=== PATIENT | male | born 1995 | race Caucasian/White ===

== ENCOUNTER → 2021-04-28 10:49 | Outpatient (CLI) | payer OTHER, SELFPAY ==
--- NOTE | 2021-04-28 10:57 | DI.MRI.S_ITS ---
PROCEDURE: MR HIP LT W CON INDICATIONS: Pain in left hip TECHNIQUE: After the administration of 10 mL of dilute intra-articular Gadolinium contrast, coronal STIR of the bony pelvis; coronal and oblique axial T1 spin echo with fat saturation, axial T2 fast spin echo with fat saturation, sagittal T1 spin echo with and without fat saturation of the involved hip. COMPARISON: None. FINDINGS: BONES AND JOINTS: Osseous structures: No fracture identified. Sacroiliac joints: Unremarkable in signal intensity. Lower lumbar spine: Diffuse spondylosis and facet arthropathy. Joint effusion: None. Other: No evidence of osteonecrosis. TENDONS AND LIGAMENTS: Gluteus medius and minimus tendons: Thickening and abnormal signal involving the gluteus minimus insertion suggestive of subacute or chronic tear and background tendinopathy. This appears asymmetric to the contralateral side. No definite associated muscle atrophy. Proximal iliotibial band: Intact. Iliopsoas tendon: Intact. Origin of the hamstring tendon: Intact. Rectus femoris muscle origins: Intact Ligamentum teres: Intact where visualized. LABRUM: Labrum: Slightly blunted appearance of the anterosuperior labrum. Of note, there is minimal adjacent chondral loss or degenerative sclerosis . Alpha angle of the femur: Within normal limits at less than 55 degrees. SOFT TISSUES: Visualized muscles: Normal bulk and internal signal. Quadratus femoris muscle: Normal. Proximal sciatic neurovascular bundle: Normal adjacent to the hamstring tendons. Other: No pelvic free fluid. Bladder: Normal. Genitourinary structures and bowel loops: Normal where visualized. 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 Mild irregularity of the anterosuperior labrum which could reflect incidental sublabral sulcus (favored over tear) or mild degeneration. Of note, minimal degenerative changes in the adjacent acetabulum, or chondral loss. Therefore please correlate clinically Dictated by: Simba Bernard M.D. on 04/28/2021 at 13:39 Approved by: Simba Bernard M.D. on 04/28/2021 at 13:56
--- NOTE | 2021-04-28 10:58 | DI.RAD.S_ITS ---
PROCEDURE: FL HIP INJECTION MR/CT LT INDICATIONS: Pain in left hip TECHNIQUE: The indications, alternatives, benefits, risks, and complications of the procedure were explained to the patient. Written informed consent was obtained and placed in the chart. The hip was examined fluoroscopically with the legs fixed in slight internal rotation, and a site for needle placement chosen for entry into the hip joint from an anterior approach. Care was taken to locate the common femoral artery and vein beforehand. The skin was prepped and draped in a sterile fashion, and 1% Lidocaine infiltrated from skin down to joint capsule. A spinal needle was inserted into the joint, and a small amount of iodinated contrast media injected to confirm intra-articular placement of the needle tip. This was followed by approximately 10 mL dilute solution of a gadolinium containing MR contrast agent. The needle was removed and a dressing was applied. The patient was given postprocedural instructions and sent to the MR suite for imaging. COMPARISON: [facility], MR, MR HIP LT W CON, 04/28/2021, 11:40. FINDINGS: A single fluoroscopic spot image demonstrates intra-articular location of injected iodinated contrast. IMPRESSION: Successful fluoroscopically guided administration of dilute Gadolinium solution into the hip joint for MR arthrogram. Dictated by: Leona Sanchez M.D. on 04/28/2021 at 13:01 Approved by: Leona Sanchez M.D. on 04/28/2021 at 13:02
== END ==
PROVIDERS: PCP Family Medicine; Referring Provider Orthopaedic Surgery Adult Reconstructive Orthopaedic Surgery; Visit Provider Orthopaedic Surgery Adult Reconstructive Orthopaedic Surgery
DX: M25.552 Pain in left hip (principal); S76.012A Strain of muscle, fascia and tendon of left hip, initial encounter
CPT/HCPCS: 27093; 73722; 77002